=== PATIENT | male | born 1950 | race Caucasian/White ===

== ENCOUNTER → 2017-01-25 | Outpatient (CLI) | payer MEDICARE, OTHER ==
--- NOTE | 2017-01-25 16:02 | RADRPT ---
EXAM DATE/TIME: 01/25/2017 12:35 [place] COMPARISON: No previous studies available for comparison. INDICATIONS : Tremors for 6 months and abnormal gait. DOSE: 5.5 mCi Ioflupane Iodine-123 in 2.5 ml total volume MEDICATION(S): 130 mg Potasium Iodine PO one hour prior to injection SPECT IMAGIN.5 Hrs RADIATION DOSE: 30.27 CTDIvol (mGy) MEDICAL HISTORY : Carcinoma, prostate. SURGICAL HISTORY : Prostatectomy. ENCOUNTER: Initial ACUITY: 4 - 6 months PAIN SCALE: 0/10 LOCATION: Head. TECHNIQUE: SPECT imaging of the brain was performed in sagittal, axial and coronal planes. Attenuation correctio n was performed with computed tomography and both the attenuation correction and non-attenuation angela ected data sets were reviewed. FINDINGS: There is normal biodistribution of radionuclide with symmetric crescent-shaped areas of activity are in the striatum which appears distinct relative to the surrounding brain tissue. CONCLUSION: Negative David-scan. Patient's tremors do not appear to be Dopaminergic in nature Filipe Hermosillo MD on January 25, 2017 at 15:54 Board Certified Radiologist. This report was verified electronically.
== END ==
LOC: HRAD 07:50
PROVIDERS: ATTEND Specialist
DX: G20 Parkinson's disease (principal)
CPT/HCPCS: 78607; A9584